=== PATIENT | male | born 1980 | race American Indian/Alaskan Native ===

== ENCOUNTER 2020-01-06 13:56 | Emergency (ER) | payer MEDICAID ==
--- NOTE | 2020-01-06 14:10 | Emergency Department Report ---
Chief Complaint: Urogenital-Male Stated Complaint: URINING PAIN Time Seen by Provider: 01/06/20 14:05 - HPI History of Present Illness: 39 y/o male comes in for urinatary pain with penile discharge time 4 days. Does admitt to having unprocted intercourse. No fever, or abd pains. - Exam Physical Exam: Patient is alert and oriented x3 no acute distress Amatory without difficulties. MSE screening note: Focused history and physical exam performed. Due to findings the following was ordered: 39 y/o male comes in for urinatary pain with penile discharge time 4 days. Does admitt to having unprocted intercourse. No fever, or abd pains. Referral to Urgent care , primary Care and [facility] department. ED Disposition for MSE Disposition: MED SCREENING EXAM-LEFT Is pt being admited?: No Does the pt Need Aspirin: No Condition: Stable Referrals: [facility] Depart [Outside] - 3-5 Days
== END 2020-01-06 18:05 | disposition left against medical advice (07) ==
LOC: ED 13:56
DX: R30.9 Painful micturition, unspecified (principal); R36.9 Urethral discharge, unspecified
CPT/HCPCS: 99281